=== PATIENT | female | born 1995 | race African-American/Black ===

== ENCOUNTER 2018-12-25 21:29 | Inpatient (IN) | payer MEDICAID ==
[~2018-12-25] VITALS: Ht 160 cm; Wt 86.6 kg
[2018-12-25] MEDS ORDERED: MORPHINE SULFATE 4 MG/ML CPJ (NOT FOR IM USE) IV STA (22:08)
[2018-12-25] MEDS ORDERED: ONDANSETRON HCL 4MG/2ML INJ IV STA (22:08)
[2018-12-25] MEDS ORDERED: ASPIRIN 81MG TABLET PO ONE (22:15)
[2018-12-25] MEDS ORDERED: IPRATROPIUM/ALBUTEROL 0.5-3(2.5)MG/3ML NEB HHN ONE (22:15)
[2018-12-25 23:17] LABS: BASOPHILS % 1.7 % (0.0-2.0); EOSINOPHILS % 1.4 % (0.0-5.0); HEMOGLOBIN. 10.8 g/dL (12.0-16.0); LYMPHOCYTES % 30.6 % (20.0-50.0); MEAN CORPUSCULAR HEMOGLOBIN 30.9 pg (28.0-32.0); MEAN CORPUSCULAR VOLUME 94.3 fL (81.0-99.0); MEAN PLATELET VOLUME 7.8 fl (7.4-10.4); MONOCYTES % 5.6 % (2.0-8.0); NEUTROPHILS % 60.7 % (40.0-76.0); PLATELET 359 x1000/uL (130-400); RED CELL DISTRIBUTION WIDTH 15.9 % (11.6-14.6)
[2018-12-25 23:24] LABS: CHLORIDE 102 mEq/L (98-107)
[2018-12-25 23:26] LABS: INR 1.2; PARTIAL THROMBOPLASTIN TIME 28.2 sec (23.4-31.0); PROTHROMBIN TIME 12.4 sec (9.1-11.1)
[2018-12-25 23:30] LABS: ETHANOL BLOOD < 10 mg/dL; HCG SCREEN NEGATIVE
[2018-12-25 23:34] LABS: T4 FREE 1.13 ng/dL (0.76-1.46)
[2018-12-26] LABS: CLARITY URINE CLOUDY (CLEAR); COLOR URINE DARK YELLOW (YELLOW); KETONES URINE TRACE (NEGATIVE); LEUKOCYTE ESTERASE URINE TRACE (NEGATIVE); NITRITE URINE NEGATIVE (NEGATIVE); OCCULT BLOOD URINE 3+ (NEGATIVE); PH URINE 5.5 (4.5-8.0); PROTEIN URINE 2+ (NEGATIVE); SPECIFIC GRAVITY URINE 1.042 (1.005-1.030)
[2018-12-26] MEDS ORDERED: FUROSEMIDE 40MG/4ML VIAL IVP ONE
[2018-12-26] MEDS ORDERED: LORAZEPAM 2MG/ML CPJ IV PRN (00:15)
[2018-12-26] MEDS ORDERED: MAGNESIUM/ALUMINUM HYDROXIDE/SIMETHICONE 30ML UDC PO PRN (00:15)
[2018-12-26] MEDS ORDERED: ACETAMINOPHEN 325MG TABLET PO PRN (00:15)
[2018-12-26] MEDS ORDERED: IPRATROPIUM/ALBUTEROL 0.5-3(2.5)MG/3ML NEB INH PRN (00:15)
[2018-12-26] MEDS ORDERED: HYDROCODONE/APAP 7.5/325MG 1 TAB TABLET PO PRN (00:15)
[2018-12-26] MEDS ORDERED: DOCUSATE SODIUM 100MG CAPSULE PO PRN (00:15)
[2018-12-26] MEDS ORDERED: CLONIDINE 0.1MG TABLET PO PRN (00:15)
[2018-12-26] MEDS ORDERED: DIPHENHYDRAMINE 50MG/ML VIAL IV PRN (00:15)
[2018-12-26] MEDS ORDERED: GUAIFENESIN 200MG/10ML SUGAR FREE UDC PO PRN (00:15)
[2018-12-26] MEDS ORDERED: HYDRALAZINE 20MG/ML VIAL IV PRN (00:15)
[2018-12-26] MEDS ORDERED: ONDANSETRON HCL 4MG/2ML INJ IV PRN (00:15)
[2018-12-26 01:18] VITALS: BP 120/74
[2018-12-26 01:25] VITALS: BP 120/74
[2018-12-26] MEDS: HYDROMORPHONE HCL/PF 2MG/ML CPJ IV PRN ×2 (02:18→08:44)
[2018-12-26 04:00] VITALS: BP 95/68
[2018-12-26] MEDS ORDERED: FURO-151 PO (04:31)
[2018-12-26] MEDS ORDERED: HYDR-2510 PO (04:31)
[2018-12-26] MEDS ORDERED: COR3 PO (04:31)
[2018-12-26] MEDS ORDERED: POTA20TA82 PO (04:31)
[2018-12-26] MEDS ORDERED: SODIUM CHLORIDE 0.9% INJ 3ML FLUSH IVF SCH (06:00)
[2018-12-26 07:26] LABS: CREATINE KINASE MB FRACTION 1.5 ng/mL (0.5-3.6)
[2018-12-26 08:00] VITALS: BP 100/77
[2018-12-26] MEDS ORDERED: ENOXAPARIN 40MG/0.4ML SYR SUBCUT SCH (09:00)
[2018-12-26] MEDS ORDERED: FUROSEMIDE 40MG/4ML VIAL IV SCH (09:00)
[2018-12-26 09:44] VITALS: BP 102/63
[2018-12-26] MEDS ORDERED: CEFTRIAXONE 1 G PREMIX 50 ML IV SCH (12:00)
== END 2018-12-26 11:01 | disposition left against medical advice (07) | DRG 463 ==
LOC: ER 21:29 → 6WST 23:48 → EDBEDREQ 23:55 → EDBEDREQTM 23:55 → ENRESERV 12-26 00:05
PROVIDERS: ADMIT Internal Medicine; ATTEND Internal Medicine
DX: N39.0 Urinary tract infection, site not specified (principal); I42.4 Endocardial fibroelastosis; I50.9 Heart failure, unspecified; R74.8 Abnormal levels of other serum enzymes; R07.9 Chest pain, unspecified; D64.9 Anemia, unspecified; Z53.21 Procedure and treatment not carried out due to patient leaving prior to being seen by health care provider; E66.9 Obesity, unspecified; Z95.0 Presence of cardiac pacemaker; Z68.33 Body mass index [BMI] 33.0-33.9, adult; Z87.891 Personal history of nicotine dependence
CPT/HCPCS: 36415; 71045; 82550; 82553; 83605; 83880; 84439; 84443; 84484; 84703; 93005; 94640; 96374; 96375; 99285; J0696; J1170; J1200; J1650; J1940; J2270; J2405; J7620

== ENCOUNTER 2019-01-06 18:56 | Emergency (ER) | payer MEDICAID ==
[~2019-01-06] VITALS: Ht 167.6 cm; Wt 70.0 kg
[~2019-01-06 18:56] MED LIST: COR3 PO; FURO-151 PO; HYDR-2510 PO; POTA20TA82 PO
[2019-01-06] MEDS ORDERED: MORPHINE SULFATE 4 MG/ML CPJ (NOT FOR IM USE) IV STA (22:30)
[2019-01-06] MEDS ORDERED: ONDANSETRON HCL 4MG/2ML INJ IV STA (22:30)
[2019-01-06 23:31] LABS: BASOPHILS % 1.3 % (0.0-2.0); LYMPHOCYTES % 39.9 % (20.0-50.0); MEAN CORPUSCULAR HEMOGLOBIN 29.5 pg (28.0-32.0); MEAN CORPUSCULAR VOLUME 91.1 fL (81.0-99.0); MEAN PLATELET VOLUME 6.8 fl (7.4-10.4); MONOCYTES % 7.4 % (2.0-8.0); NEUTROPHILS % 50.4 % (40.0-76.0); PLATELET 540 x1000/uL (130-400); RED BLOOD CELL COUNT 3.73 mill/uL (4.2-5.4); RED CELL DISTRIBUTION WIDTH 16.9 % (11.6-14.6)
[2019-01-06 23:34] LABS: CHLORIDE 103 mEq/L (98-107)
[2019-01-07 00:30] LABS: CLARITY URINE CLOUDY (CLEAR); COLOR URINE YELLOW (YELLOW); KETONES URINE TRACE (NEGATIVE); LEUKOCYTE ESTERASE URINE TRACE (NEGATIVE); NITRITE URINE NEGATIVE (NEGATIVE); OCCULT BLOOD URINE NEGATIVE (NEGATIVE); PROTEIN URINE 2+ (NEGATIVE); SPECIFIC GRAVITY URINE 1.022 (1.005-1.030)
[2019-01-07] MEDS ORDERED: ASPIRIN 81MG TABLET PO ONE (01:00)
[2019-01-07] MEDS: NITROGLYCERIN 0.4MG TABLET SL SL PRN ×2 (01:11→02:01)
[2019-01-07] MEDS ORDERED: ALPRAZOLAM 0.5 MG TABLET PO ONE (02:00)
[2019-01-07 04:58] VITALS: BP 90/63
== END 2019-01-07 06:45 | disposition left against medical advice (07) ==
LOC: ER 18:56 → CANBEDREQ 01-07 07:40
DX: I24.9 Acute ischemic heart disease, unspecified (principal); I50.9 Heart failure, unspecified; R10.9 Unspecified abdominal pain; Z95.0 Presence of cardiac pacemaker; Z79.899 Other long term (current) drug therapy
CPT/HCPCS: 36415; 71111; 80053; 81003; 81025; 83880; 84484; 85025; 93005; 96374; 96375; 99284; J2270; J2405; Z7610

== ENCOUNTER 2019-01-10 22:29 | Emergency (ER) | payer MEDICAID ==
[~2019-01-10] VITALS: Ht 172.7 cm; Wt 70.0 kg
[2019-01-11] MEDS ORDERED: NITROGLYCERIN OINT 1GM/INCH UDPKT TD ONE (02:45)
[2019-01-11 02:56] LABS: BASOPHILS % 1.3 % (0.0-2.0); EOSINOPHILS % 1.7 % (0.0-5.0); HEMATOCRIT. 37.9 % (36.0-48.0); HEMOGLOBIN. 12.3 g/dL (12.0-16.0); MEAN CORPUSCULAR HEMOGLOBIN 29.4 pg (28.0-32.0); MEAN CORPUSCULAR VOLUME 90.5 fL (81.0-99.0); MEAN PLATELET VOLUME 6.8 fl (7.4-10.4); MONOCYTES % 8.5 % (2.0-8.0); NEUTROPHILS % 58.5 % (40.0-76.0); PLATELET 513 x1000/uL (130-400); RED BLOOD CELL COUNT 4.18 mill/uL (4.2-5.4); RED CELL DISTRIBUTION WIDTH 17.6 % (11.6-14.6)
[2019-01-11 03:00] VITALS: BP 116/72
[2019-01-11 03:02] LABS: CHLORIDE 102 mEq/L (98-107)
[2019-01-11 03:17] LABS: HCG SCREEN NEGATIVE
== END 2019-01-11 04:06 | disposition left against medical advice (07) ==
LOC: ER 22:29
DX: F15.10 Other stimulant abuse, uncomplicated (principal); R07.89 Other chest pain; I50.9 Heart failure, unspecified; F17.200 Nicotine dependence, unspecified, uncomplicated; Z79.899 Other long term (current) drug therapy; Z96.89 Presence of other specified functional implants
CPT/HCPCS: 36415; 80053; 83880; 84484; 84703; 85025; 93005; 99284; Z7610

== ENCOUNTER 2019-11-23 20:34 | Emergency (ER) | payer MEDICAID, OTHER ==
[~2019-11-23] VITALS: Ht 165.1 cm; Wt 80.5 kg
[2019-11-24] MEDS ORDERED: MORPHINE SULFATE 4 MG/ML CPJ (NOT FOR IM USE) IV STA (00:09)
[2019-11-24] MEDS ORDERED: ONDANSETRON HCL 4MG/2ML INJ IV STA (00:09)
[2019-11-24] MEDS ORDERED: FUROSEMIDE 40MG/4ML VIAL IV ONE (00:15)
[2019-11-24 00:35] LABS: BASOPHILS % 2.1 % (0.0-2.0); EOSINOPHILS % 11.6 % (0.0-5.0); HEMATOCRIT. 29.9 % (36.0-48.0); HEMOGLOBIN. 9.5 g/dL (12.0-16.0); LYMPHOCYTES % 31.8 % (20.0-50.0); MEAN CORPUSCULAR HEMOGLOBIN 26.4 pg (28.0-32.0); MEAN CORPUSCULAR VOLUME 82.9 fL (81.0-99.0); MEAN PLATELET VOLUME 7.8 fl (7.4-10.4); MONOCYTES % 8.5 % (2.0-8.0); PLATELET 327 x1000/uL (130-400); RED BLOOD CELL COUNT 3.61 mill/uL (4.2-5.4)
[2019-11-24 00:54] LABS: CHLORIDE 103 mEq/L (98-107)
[2019-11-24 03:38] LABS: *AMPHETAMINES SCREEN URINE NEGATIVE (NEGATIVE); *BARBITURATES SCREEN URINE NEGATIVE (NEGATIVE); *BENZODIAZEPINES SCREEN URINE NEGATIVE (NEGATIVE)
[2019-11-24 03:39] LABS: *COCAINE SCREEN URINE NEGATIVE (NEGATIVE); METHADONE URINE SCREEN NEGATIVE (NEGATIVE); OPIATES URINE SCREEN NEGATIVE (NEGATIVE)
[2019-11-24 03:40] LABS: PHENCYCLIDINE URINE SCREEN NEGATIVE (NEGATIVE)
[2019-11-24 03:41] LABS: CANNABINOID URINE SCREEN PRESUMTIVE POSITIVE (NEGATIVE)
[2019-11-24] MEDS ORDERED: IOHEXOL-350 100 ML BOTTLE ONE (03:41)
[2019-11-24 03:49] VITALS: BP 128/84
== END 2019-11-24 03:51 | disposition left against medical advice (07) ==
LOC: ER 20:34 → CANBEDREQ 11-24 17:02
DX: I26.99 Other pulmonary embolism without acute cor pulmonale (principal); R07.89 Other chest pain; I50.9 Heart failure, unspecified; Z95.0 Presence of cardiac pacemaker
CPT/HCPCS: 36415; 71045; 71275; 80053; 80305; 81025; 83880; 84484; 85025; 93005; 93970; 96374; 96375; 99284; J1940; J2270; J2405; Q9967; Z7610

== ENCOUNTER 2020-10-13 21:44 | Inpatient (IN) | payer OTHER ==
[~2020-10-13] VITALS: Ht 165.1 cm; Wt 724.4 kg
[~2020-10-13 21:44] MED LIST changes: +FURO40TA5 PO; +HYDR-4001 MT; +SPIR25TA PO
[2020-10-13] MEDS ORDERED: ONDANSETRON HCL 4MG/2ML INJ IV ONE (23:00)
[2020-10-13] MEDS ORDERED: MORPHINE SULFATE 4 MG/ML CPJ (NOT FOR IM USE) IV ONE (23:00)
[2020-10-13 23:12] LABS: HEMATOCRIT. 46.6 % (36.0-48.0); HEMOGLOBIN. 15.5 g/dL (12.0-16.0); MEAN CORPUSCULAR HEMOGLOBIN 31.1 pg (28.0-32.0); MEAN CORPUSCULAR VOLUME 93.3 fL (81.0-99.0); MEAN PLATELET VOLUME 7.7 fl (7.4-10.4); PLATELET 257 x1000/uL (130-400); RED BLOOD CELL COUNT 4.99 mill/uL (4.2-5.4); RED CELL DISTRIBUTION WIDTH 19.8 % (11.6-14.6)
[2020-10-13 23:18] LABS: CHLORIDE 102 mEq/L (98-107)
[2020-10-13 23:24] LABS: PLATELET ESTIMATE NORMAL
[2020-10-13 23:30] LABS: HCG SCREEN NEGATIVE
[2020-10-13] MEDS ORDERED: FUROSEMIDE 40MG/4ML VIAL IVP ONE (23:45)
[2020-10-14] MEDS ORDERED: KETOROLAC 15MG/ML VIAL IV ONE (01:30)
[2020-10-14 06:00] VITALS: BP 105/64
[2020-10-14] MEDS ORDERED: DOCUSATE SODIUM 100MG CAPSULE PO PRN (06:15)
[2020-10-14] MEDS ORDERED: ACETAMINOPHEN 325MG TABLET PO PRN (06:15)
[2020-10-14] MEDS ORDERED: ONDANSETRON HCL 4MG/2ML INJ IV PRN (06:15)
[2020-10-14] MEDS ORDERED: CLONIDINE 0.1MG TABLET PO PRN (06:15)
[2020-10-14] MEDS: DIPHENHYDRAMINE 50MG/ML VIAL IV PRN ×3 (07:42→21:47)
[2020-10-14 07:46] VITALS: BP 95/54
[2020-10-14] MEDS: HYDROCODONE/ACETAMINOPHEN 5/325MG TABLET PO PRN (07:48)
[2020-10-14 07:54] VITALS: BP 95/54
[2020-10-14 08:42] LABS: T4 FREE 1.1 ng/dL (0.76-1.46)
[2020-10-14] MEDS ORDERED: NA PHOS,M-B/NA PHOS,DI-BA ENEMA 118ML PR PRN (09:00)
[2020-10-14] MEDS: ENOXAPARIN 40MG/0.4ML SYR SUBCUT SCH (09:15)
[2020-10-14 11:13] LABS: CHLORIDE 104 mEq/L (98-107)
[2020-10-14 12:00] VITALS: BP 106/63
[2020-10-14] MEDS: BACITRACIN 15GM TUBE TOP SCH ×2 (12:00→18:00)
[2020-10-14 16:00] VITALS: BP 92/65
[2020-10-14 16:10] LABS: CREATINE KINASE MB FRACTION 2.3 ng/mL (0.5-3.6)
[2020-10-14] MEDS: SODIUM CHLORIDE 45ML SPRAY NS SCH ×2 (18:45→22:44)
[2020-10-14 20:47] VITALS: BP 95/58
[2020-10-15] VITALS (7 sets, daily range): BP systolic 91–133; BP diastolic 54–112
[2020-10-15 01:05] LABS: CREATINE KINASE MB FRACTION 2.2 ng/mL (0.5-3.6)
[2020-10-15] MEDS: SODIUM CHLORIDE 45ML SPRAY NS SCH ×5 (02:53→22:45)
[2020-10-15] MEDS: BACITRACIN 15GM TUBE TOP SCH ×5 (06:21→23:57)
[2020-10-15 06:28] LABS: BASOPHILS % 0.8 % (0.0-2.0); EOSINOPHILS % 3.6 % (0.0-5.0); HEMATOCRIT. 38.6 % (36.0-48.0); HEMOGLOBIN. 12.8 g/dL (12.0-16.0); LYMPHOCYTES % 26.1 % (20.0-50.0); MEAN CORPUSCULAR HEMOGLOBIN 31.2 pg (28.0-32.0); MEAN CORPUSCULAR VOLUME 93.7 fL (81.0-99.0); MEAN PLATELET VOLUME 7.5 fl (7.4-10.4); MONOCYTES % 13.6 % (2.0-8.0); NEUTROPHILS % 55.9 % (40.0-76.0); PLATELET 251 x1000/uL (130-400); RED BLOOD CELL COUNT 4.12 mill/uL (4.2-5.4); RED CELL DISTRIBUTION WIDTH 19.8 % (11.6-14.6)
[2020-10-15] MEDS: HYDROCODONE/ACETAMINOPHEN 5/325MG TABLET PO PRN ×2 (06:28→09:03)
[2020-10-15] MEDS: DIPHENHYDRAMINE 50MG/ML VIAL IV PRN ×3 (06:44→20:28)
[2020-10-15 08:06] LABS: CHLORIDE 102 mEq/L (98-107)
[2020-10-15 08:19] LABS: PHOSPHORUS 5.7 mg/dL (2.5-4.9)
[2020-10-15 08:20] LABS: LDL CHOLESTEROL 101 mg/dL (5-100)
[2020-10-15 08:22] LABS: HDL CHOLESTEROL 39 mg/dL (40-59)
[2020-10-15] MEDS: ENOXAPARIN 40MG/0.4ML SYR SUBCUT SCH (09:04)
[2020-10-15] MEDS: FUROSEMIDE 40MG TABLET PO SCH (10:36)
[2020-10-15 15:50] LABS: *BARBITURATES SCREEN URINE NEGATIVE (NEGATIVE); *COCAINE SCREEN URINE NEGATIVE (NEGATIVE); METHADONE URINE SCREEN NEGATIVE (NEGATIVE)
[2020-10-15 15:51] LABS: *BENZODIAZEPINES SCREEN URINE NEGATIVE (NEGATIVE); PHENCYCLIDINE URINE SCREEN NEGATIVE (NEGATIVE)
[2020-10-15 16:13] LABS: *AMPHETAMINES SCREEN URINE PRESUMTIVE POSITIVE (NEGATIVE); CANNABINOID URINE SCREEN PRESUMTIVE POSITIVE (NEGATIVE); OPIATES URINE SCREEN PRESUMTIVE POSITIVE (NEGATIVE)
[2020-10-15] MEDS ORDERED: FUROSEMIDE 40MG/4ML VIAL IVP NR (16:15)
[2020-10-15] MEDS: COLCHICINE 0.6MG TABLET PO SCH (20:19)
[2020-10-15] MEDS ORDERED: FUROSEMIDE 40MG TABLET PO SCH (21:00)
[2020-10-15] MEDS ORDERED: TRAMADOL 50MG TABLET PO PRN (21:21)
[2020-10-15] MEDS: CAPSAICIN 0.025% CREAM 60GM TOP SCH (22:00)
[2020-10-15] MEDS ORDERED: IBUPROFEN 600MG TABLET PO SCH (23:30)
[2020-10-15] MEDS ORDERED: COLCHICINE 0.6MG TABLET PO SCH (23:30)
[2020-10-16] MEDS: SODIUM CHLORIDE 45ML SPRAY NS SCH ×2 (02:51→06:09)
[2020-10-16 04:00] VITALS: BP 94/63
[2020-10-16] MEDS: CAPSAICIN 0.025% CREAM 60GM TOP SCH (06:09)
[2020-10-16] MEDS: BACITRACIN 15GM TUBE TOP SCH (06:10)
[2020-10-16 08:00] VITALS: BP 95/67
[2020-10-16] MEDS: DIPHENHYDRAMINE 50MG/ML VIAL IV PRN (09:00)
[2020-10-16] MEDS: FUROSEMIDE 40MG TABLET PO SCH (09:01)
[2020-10-16] MEDS: COLCHICINE 0.6MG TABLET PO SCH (09:01)
[2020-10-16] MEDS: ENOXAPARIN 40MG/0.4ML SYR SUBCUT SCH (09:02)
[2020-10-16 12:00] VITALS: BP 96/62
[2020-10-16 12:25] VITALS: BP 122/72
== END 2020-10-16 12:58 | disposition home or self-care (01) | DRG 198 ==
LOC: ER 22:46 → 6WST 10-14 02:03 → ENRESERV 10-14 04:02
PROVIDERS: ADMIT Family Medicine; ATTEND Family Medicine
DX: I24.8 Other forms of acute ischemic heart disease (principal); I11.0 Hypertensive heart disease with heart failure; I42.9 Cardiomyopathy, unspecified; F15.10 Other stimulant abuse, uncomplicated; F10.10 Alcohol abuse, uncomplicated; Y90.9 Presence of alcohol in blood, level not specified; E87.5 Hyperkalemia; I34.0 Nonrheumatic mitral (valve) insufficiency; I25.2 Old myocardial infarction; Z86.73 Personal history of transient ischemic attack (TIA), and cerebral infarction without residual deficits; Z87.891 Personal history of nicotine dependence; Z79.891 Long term (current) use of opiate analgesic; Z79.84 Long term (current) use of oral hypoglycemic drugs; Z79.899 Other long term (current) drug therapy; Z95.0 Presence of cardiac pacemaker; I50.21 Acute systolic (congestive) heart failure
CPT/HCPCS: 36415; 71045; 73610; 73630; 80048; 80053; 80061; 80076; 80305; 82550; 82553; 83036; 83735; 83880; 84100; 84439; 84443; 84484; 84550; 84703; 85025; 85379; 93005; 93306; 93970; 96374; 97116; 97162; 99285; J1200; J1650; J1885; J1940; J2270; J2405; A4315